=== PATIENT | male | born 1955 | race Caucasian/White ===

== ENCOUNTER 2017-04-25 15:46 | Inpatient (IN) | payer OTHER, MEDICARE ==
[~2017-04-25] VITALS: Ht 177.8 cm; Wt 89.8 kg
[2017-04-25] MEDS ORDERED: LISINOPRIL20 MG PO (19:18)
[2017-04-25] MEDS ORDERED: METOPROLOL TART25 MG PO (19:18)
[2017-04-25] MEDS ORDERED: RISPERIDONE0.5 MG PO (19:18)
[2017-04-25] MEDS ORDERED: SERTRALINE HCL100 MG PO (19:19)
[2017-04-25] MEDS ORDERED: SIMVASTATIN10 MG PO (19:19)
[2017-04-25] MEDS ORDERED: BUPROPION XL300 MG PO (19:19)
[2017-04-25] MEDS ORDERED: LEVOTHYROXINE50 MCG PO (19:19)
[2017-04-25] MEDS ORDERED: ZOLPIDEM TARTRA10 MG PO (19:19)
[2017-04-25] MEDS ORDERED: TROSPIUM CHLORI20 MG PO (19:20)
[2017-04-25] MEDS ORDERED: PILOCARPINE HCL5 MG PO (19:20)
--- NOTE | 2017-04-25 19:30 | NUR ---
PT ARRIVED TO FLOOR VIA STRETCHER WITH FLOAT RN. PT COMPLAINING OF PAIN IN RIGHT SHOULDER/CHEST AREA. PT CURRENTLY ON OXYGENAND SPO2 100% AT 4L NC. PER SHIFT REPORT PER MD LEAVE PT ON OXYGEN. TRANSFERED PT TO BED WITH 4 PERSON SLIDE. PT AT BEDSIDE.
--- NOTE | 2017-04-25 20:00 | NUR ---
GAVE PT PRN PAIN MEDICATION PT PAIN CURRENTLY 05/16. REDRESSED PT IV. IV FLUSES WELL WITH BLOOD RETURN PRESENT. PT HR AND BP SLIGHTLY ELEVATED. PT HAS HX A.FIB AND ARRIVED TO [facility] IN A.FIB. PT REPORTS HE IS ON ELIQUIS AT HOME. MD ANGEL.
--- NOTE | 2017-04-25 20:30 | NUR ---
GAVE PT ANOTHER DOSE PRN PAIN MEDICATIONS PER ORDER. PT PAIN 04/15. WILL CONTINUE TO MONITOR. PT WEARING SLING ON RIGHT ARM. GAVE PT A FOLDED THICKER BLANKET TO SPLINT CHEST TUBE SITE FOR COMFORT. PT ASSESSMENT COMPELTED. PT LUNGS ARE CLEAR THROUGHOUT AND DIMINISHED IN RIGHT LOWER. PT HAS ABRASION ON RIGHT AND LEFT SHOULDER. NO DRAINAGE PRESENT AND OPEN TO AIR.
--- NOTE | 2017-04-25 21:15 | NUR ---
CALL MD TO UPDATE ON PT STATUS. MD AWARE OF PAIN AND WILL CONTINUE TO CURRENT PLAN AT THIS TIME. PT PAIN IS DECREASING WITH EACH DOSE OF PAIN MEDICATIONS. PT BP ELEVATED AND DIASTOLIC RUNNING HIGH. PT HR 100-115 IN A.FIB. PER MD ORDER HOME DOSE METOPROLOL AND LISINOPRIL. WILL CONTINUE TO MONITOR.
--- NOTE | 2017-04-25 22:00 | NUR ---
GAVE PRN PAIN MEDICATION. PT PAIN IS TRENDING DOWN WITH EACH ADDITIONAL DOSE. WILL COTNINUE TO MONITOR. PT CHEST TUBE SITE REMAINS UNCHAGNED. PT CHEST TUBE HAS SANGINOUS DRAINAIGE IN CANISTER. CURRENTLY APROX 40MLS. WILL CONTINUE TO MONITOR THROUGHOTU THE NIGHT.
--- NOTE | 2017-04-25 23:10 | NUR ---
PT DENIED PAIN MEDICATIONS AT THIS TIME. EDUCATED TO CALL IF PT CHANGES HIS MIND. WILL CONTINUE TO MONITOR.
--- NOTE | 2017-04-26 | NUR ---
PT PAIN INCREASING AGAIN. GAVE PRN PAIN MEDICATION. PT RIGHT ARM REMAINS IN SLING AND CHEST TUBE UNCHANGED. WILL CONTINUE TO CLOSELY MONITOR. PT STATES " MY PAIN IS MUCH BETTER THAN WHEN I GOT TO THE ER". PT DENIES ANY OTHER NEEDS AT THIS TIME. WILL CONTINUE TO MONITOR.
--- NOTE | 2017-04-26 01:40 | NUR ---
PT MOANING. ENTERED ROOM AND ASKED PT IF HE IS HAVING PAIN AND PT SAID YES 03/16. GAVE PRN PAIN MEDICATION. CALLED RT TO LET THEM KNOW PT WAS AWAKE AND IS READY FOR BREATHING TREATMENT. WILL CONTINUE TO MONITOR.
--- NOTE | 2017-04-26 02:06 | NUR ---
PATIENT MEDICATED FOR INCREASING PAIN 7/10 TO RIGHT SIDE AND SHOULDER. PATIENT REPOSITIONED AT THIS THIS TIME. OXYGEN WITH HUMIDIFER PLACED.
--- NOTE | 2017-04-26 04:00 | NUR ---
PT CONTINUES TO HAVE INCREASED PAIN. WILL GIVE PRN PAIN MEDICATION NEEDED. PT CHEST TUBE UNCHANGED. NO CREPITUS PRESENT. UNCHANGED DRAINAGE AT SIGHT AND SANGINOUS DRAINAGE IN CHEST TUBE CHAMBER. WILL CONTINUE TO MONITOR.
--- NOTE | 2017-04-26 06:30 | NUR ---
X-RAY COMPLETED. PT TOLERATED WELL. PICTURES TAKEN OF CURRENT BRUISING. PT STATES PAIN THIS AM IS IMPROVING. PT CURRENTLY REPORTS PAIN 4/10. PT ASKED FOR JELLO, BROTH, FRESH WATER. PT TOLERATED CLEAR LIQUIDS LAST NIGHT. WILL CONTINUE TO MONITOR.
--- NOTE | 2017-04-26 06:54 | NUR ---
PT RESTING IN BED AT THIS TIME. PT WAS ABLE TO ROLL IN BED WITH ASSISTANCE AND WAS ABLE TO TOLERATE IT BETTER THEN EARLIER IN THE NIGHT. PT BACK LOOKS UNCHANGED. WILL CONTINUE TO MONTIOR.
--- NOTE | 2017-04-26 07:30 | NUR ---
BEDSIDE REPORT RECIEVED. PATIENT IS RESTING IN BED. NO AIR LEAK NOTED FROM RIGHT SIDE CHEST TUBE TO RIGHT CHEST DRAIN. CHEST TUBE REMAINS TO 20 CM SUCTION. IS INTERACTIVE DURNING REPORT.
--- NOTE | 2017-04-26 08:15 | NUR ---
C/O INCREASE RIGHT SIDE RIB CAGE PAIN. MORPHINE 5MG IV GIVEN.
--- NOTE | 2017-04-26 08:45 | NUR ---
FED PATIENT FEW BITES OF JELLO AND BROTH. IVF PATENT. DENIES NEED TO VOID T THIS TIME.
--- NOTE | 2017-04-26 09:20 | NUR ---
O2 SATS DOWN TO 80. ENC DEEP BREATHING. IS MOUTH BREATHING AT TIMES. OXYMASK AT 3 L APPLIED.
--- NOTE | 2017-04-26 09:50 | NUR ---
VERY SOMULENT. ATTEMPTING TO WAKE PATIENT TO USE I.S. PT IS LETHARGIC. HOB IS ELEVATED. WILL WAKE FOR BRIEF TIME THEN BACK TO SLEEP. ENC PATIENT TO ATTEMPT TO VOID. STATES HE DOES NOT FEEL NEED TO VOID AT THIS TIME. WILL DO BLADDER SCAN. SKIN IS MOIST TO TOUCH.
--- NOTE | 2017-04-26 10:15 | NUR ---
MESSAGE LEFT FOR DR. MARTINES WHO IS OR. WILL UPDATE MD REGARDING PT SOMULANCE, VITL SIGNS, BLADDER SCAN VOLUME.
--- NOTE | 2017-04-26 10:30 | NUR ---
SIDE LINE CO2 MONITOR APPLIED PER RT.
--- NOTE | 2017-04-26 13:15 | NUR ---
VOIDED 25 ML OF DARK HEMALATHA URINE.
--- NOTE | 2017-04-26 14:50 | NUR ---
HERE TO SEE PATIENT.
--- NOTE | 2017-04-26 14:51 | NUR ---
TAKING WATER. REFUSING FUTHER CLEAR LIQ AT THIS TIME.
--- NOTE | 2017-04-26 14:55 | NUR ---
EDUCATION ON SQL APPLICATION DEVELOPER GIVEN.
--- NOTE | 2017-04-26 15:00 | NUR ---
TURNED TO PLACE DRAW SHEET. TOLERATED POOR. CURSING IN PAIN. SHAKING. PATIENT USED HOT METAL MIXER OPERATOR. TORDOL 30 MG IV GIVEN.
--- NOTE | 2017-04-26 16:32 | NUR ---
NEEDS ENCOURAGEMENT TO MOVE. DENIES NAUSEA. ICE REMAINS TO R CLAVICLE, R ARM SLING IN PLACE.
--- NOTE | 2017-04-26 18:00 | NUR ---
VOIDED 125 ML OF DARK CONSENTRATED URINE. BLADDER SCAN DONE. POST VOID BLDDER SCAN WAS 213.
--- NOTE | 2017-04-26 18:13 | NUR ---
EXTREME PAIN WITH MOVEMENT. SAT PATIENT UP IN BED TO TAKE CLEAR LIQUIDS. WAS IN SEVERE PAIN AND HOB LOWERED PER PATIENT R/O. FED PATIENT 20% OF CLEAR LIQ. DENIES NAUSEA.
--- NOTE | 2017-04-26 18:30 | NUR ---
DR. MARTINES UPDATED ON CONDITION AND U/O. FLOMAX ORDERED WELL OTHER ROUTINE MEDICATIONS. HAS OCC HARSH COUGH.
--- NOTE | 2017-04-26 19:27 | NUR ---
REPORT GIVEN TO NEXT SHIFT.
--- NOTE | 2017-04-26 19:46 | NUR ---
IN TO SEE PT. C/O OF PAIN 5/10 LOWEST, INCREASING TO 10/10 WITH MOVEMENT. MOST PAIN LOCATED ON R SIDE. CHEST TUBE IN PLACE WITH SERO-SANGUINEOUS DRAINAGE UNDER DRESSING. APPROXIMATELY 20ML SANGUINEOUS DRAINAGE IN CHEST TUBE COLLECTION CHAMBER. RT IN TO ENCOURAGE I.S. AND ADMINISTER NEB TX. ASSESSMENT COMPLETED.
--- NOTE | 2017-04-27 06:02 | NUR ---
AT 0027 PT ON BEDPAN TO ATTEMPT TO PASS STOOL. UNSUCCESSFUL. PASSED GAS. HR UP TO 140'S. PT ABLE TO PASS LIQUID CREAMY COLORED STOOL AT 0530 - 100ML. PT UP TO BSC AT THAT TIME.
--- NOTE | 2017-04-27 07:04 | NUR ---
PT UP TO BSC TO ATTEMPT TO PASS STOOL. UNSUCCESSFUL. EXTREMELY PAINFUL WITH MOVEMENT, ALSO IMPULSIVE. USING DOPER OPERATOR, REQUESTING MORE PAIN MEDICINE. SETTLES AND CALMS ONCE BACK IN BED.
--- NOTE | 2017-04-27 08:00 | NUR ---
VITALS AND ASSESSMENT DONE. PT UP TO BEDSIDE COMMODE 1 HOUR AGO. COMPLAINING OF 8 OUT OF 10 PAIN. TORADOL GIVEN. DYE MAKER IN LOCKOUT FOR FOUR HOUR LIMIT. CHEST TUBE TO LOW SUCTION AND UNDERWATER SEAL. NO CREPITIS. DRESSING INTACT WITH OLD SEROSANGIUNOUS DRAINAGE.
--- NOTE | 2017-04-27 09:00 | NUR ---
PT STILL IN LOCKOUT AND PAIN HAS INCREASED HE CANNOT HAVE A DOSE OF MORPHINE. CONFERRED WITH DR MARTINES AND 4 HOUR LOCKOUT CHANGED. PT GIVEN DOSE OF MOPHINE. RESPIRATORY THERAPY INTO GIVEN PT HIS TREATMENT.
--- NOTE | 2017-04-27 09:30 | NUR ---
PT HAS RECIEVED ANOTHER DOSE OF MORPHINE 2 MG. MUCH MORE COMFORTABLE AND ABLE TO COUGH AND MOVE. AM MEDICATIONS GIVEN. PT ALSO GIVEN BREAKFAST.
--- NOTE | 2017-04-27 10:30 | NUR ---
PT USING CARBIDER APPROPRIATELY AND PAIN CONTROL BETTER NOW AT A 4 OUT OF 10 INSTEAD OF 8 OUT OF 10. GIVEN BATH AND PT PLANNING TO WALK TO BATHROOM TO HAVE BM. WALKER IN ROOM IF PT NEEDS IT.
--- NOTE | 2017-04-27 11:30 | NUR ---
PT HAS VISITOR AND PUT AMBULATION ON HOLD FOR NOW. HAS BEEN ABLE TO COUGH WELL. NO OTHER CHANGES.
[2017-04-27] MEDS ORDERED: FLUTICASONE PRO16 GM NAS (12:05)
[2017-04-27] MEDS ORDERED: ELIQUIS5 MG PO (12:05)
--- NOTE | 2017-04-27 12:09 | NUR ---
MED REC --PER PATIENT
--- NOTE | 2017-04-27 12:45 | NUR ---
PT ABLE TO GET UP TO BEDSIDE COMMODE. HAD LIQUID STOOL AND VOIDED. PT MOVING WELL. PT ATTEMPTED TO SIT IN CHAIR BUT HAD INCREASED PAIN IN THIS POSITION. PT TO BED WITH HEAD OF BED ELEVATED. ENCOURAGE COUGING. VITALS AND ASSESSMENT DONE.
--- NOTE | 2017-04-27 14:00 | NUR ---
PT HAD LUNCH AND NEBULIZER TREATMENT. GIVEN DILAUDID 4MG PO. ENCOURAGED PT TO ONLY USE MORPHINE DYNAMICS AX TECHNICAL ARCHITECT FOR BREAKTHROUGH PAIN. CONTINUE TO MONTIOR.
--- NOTE | 2017-04-27 17:07 | NUR ---
PT HAS BEEN SLEEPING WELL. AWAKENS TO SOUND. PT ABLE TO COUGH AND CLEAR THICK SPUTUM. PT USED MS ASSISTANT WINEMAKER. ENCOURAGED PT TO ONLY USE IV PAIN MEDICATION FOR BREAKTHROUGH PAIN. PT STATED UNDERSTANDING. PT DROWSY AT TIMES. NOW TALKING WITH FAMILY ON PHONE.
--- NOTE | 2017-04-27 18:45 | NUR ---
DR MARTINES UPDATED ABOUT PT'S PAIN LEVEL. PT TOLERATING DILAUDID WELL BUT IS SLEEPY AND USING RADIO INTELLIGENCE OPERATOR-MS OUT OF HABIT. HAVE INSTRUCTED PT ON GOAL TO SWITCH TO ORAL PAIN MEDICATIONS BUT PT IS NOT ABLE TO UNDERSTAND HE IS DROWSY. MS-RADIO INTELLIGENCE OPERATOR DISCONTINUED. PT NOW EATING SUPPER. EXPLAINED CHANGE TO PT AND HE STATED UNDERSTANDING. STATED PAIN IS 4 OUT OF 10.
--- NOTE | 2017-04-27 19:27 | NUR ---
PT RESTING WITH EYES CLOSED, RESP EVEN AND UNLABORED, HR 92, SPO2 95%.
--- NOTE | 2017-04-27 20:30 | NUR ---
PT SLEEPING, VERY DIFFICULT TO AROUSE FOR ASSESSMENT. DENIES NEEDS, BACK TO SLEEP. CHEST TUBE DRAINING SEROSANG FLUID, IVF INFUSING.
--- NOTE | 2017-04-27 21:15 | NUR ---
PT DIFFICULT TO AROUSE, WHEN HE WAKES UP HE IS CONFUSED, SAYING THINGS LIKE "I THOUGHT I WAS GOING TO HAVE TO GIVE AWAY OUR HIDEOUT". LOPRESSOR GIVEN, PT DENIES PAIN, QUICKLY BACK TO SLEEP.
--- NOTE | 2017-04-27 22:30 | NUR ---
O2 SATURATIONS HAVE BEEN DROPPING, 81% TO 85%, PT MOUTH BREATHING WITH PERIODS OF APNEA/SNORING. OXYMASK PLACED AND TITRATED UP TO 5L WITH SPO2 INCREASING TO 95%.
--- NOTE | 2017-04-27 23:40 | NUR ---
PT AWAKENS SUDDENLY WITH MOANING AND C/O OF RIGHT SIDED RIB PAIN. HR UP TO 120'S, PT CONFUSED, NOT AWARE HE IS IN THE HOSPITAL OR WHY OR WHAT TOWN HE IS IN. PO DILAUDID GIVEN, PT EVENTUALLY ABLE TO RELAX AND GOES BACK TO SLEEP.
--- NOTE | 2017-04-28 01:30 | NUR ---
PT AWAKENS WITH SUDDEN PAIN, CONFUSION. MORPHINE 4MG IV GIVEN.
--- NOTE | 2017-04-28 02:00 | NUR ---
PT CONTINUES TO MOAN IN PAIN. IV TORADOL GIVEN.
--- NOTE | 2017-04-28 03:15 | NUR ---
PT AWAKE IN BED WATCHING TV, STATES HE IS COMFORTABLE. REPORTS FEELING CONFUSED EARLIER AND BELIEVES IT WAS THE DILAUDID.
--- NOTE | 2017-04-28 05:05 | NUR ---
PT CALLS, UP TO BSC TO TRY TO HAVE BM BUT UNABLE, DOES VOID 400ML DARK URINE. MOVES WELL WITH MINIMAL PAIN. BACK TO BED TO WATCH TV.
--- NOTE | 2017-04-28 06:26 | NUR ---
UP TO BSC TO TRY TO HAVE BM AGAIN BUT UNABLE TO. BACK TO BED. CONTINUES TO MOVE WELL WITH LESS PAIN. LAB IN TO DRAW.
--- NOTE | 2017-04-28 07:30 | NUR ---
PT TO BED. CHEST TUBE INTACT TO RT SIDE OF CHEST. DRESSING INTACT WITH OLD SEROUS DRAINAGE TO DRESSING. NO CREPITIS NOTED. OLD BRUISING TO RT UPPER SHOULDER. CHEST TUBE TO WATER SEAL NO AIR LEAK NOTED. PT TOLERATING ROOM AIR AT PRESENT WITH SATS AT 94%. PCXR DONE AND NOW PT HURTING. DILAUDID 4 MG PO AND TORADOL 30 MG IV GIVEN. PT ALSO GIVEN LOPRESSOR 12.5 MG PO GIVEN HEART RATE IS 110'S AND BLOOD PRESSURE IS 155/95. PT RATING PAIN AT 7 OUT OF 10. WILL MONITOR.
--- NOTE | 2017-04-28 08:30 | NUR ---
PT ALSO GIVEN SOME ZOFRAN 4 MG IV. PAIN IS DECREASING TO 5 OUT OF 10. PT DOES REPORT THAT HE SEES COLORS AND PATTERNS ON THE BANG. HE IS ALERT AND ORIENTED. ALSO GIVEN REST OF AM MEDICATIONS AND BATH. ORAL CARE DONE. BREAKFAST ORDERED. PT ABLE TO COUGH AND DEEP BREATH. MOVING BETTER.
--- NOTE | 2017-04-28 10:34 | NUR ---
PT AMBULATED FROM ROOM 127 TO ROOM 129 AND BACK HEART RATE INCREASED TO THE 130'S BUT WHEN WOULD STOP AND REST HIS HEART RATE WOULD DECREASE TO THE 100'S. PT BACK TO HIS ROOM AND UP IN THE CHAIR AT THIS TIME.
--- NOTE | 2017-04-28 10:52 | NUR ---
PT BACK TO BED AT THIS TIME, MOVES WILL WITH MINUAL ASSISTANCE NEEDED OTHER THAN TO [place]ANG[place]. LINES CHANGED AND SIDE RAILS UP X2 AND CALL LIGHT WITHIN REACH.
--- NOTE | 2017-04-28 11:00 | NUR ---
DR MARTINES BY TO SEE PT. CHEST TUBE DISCONTINUED AND OCCLUSIVE DRESSING IN PLACE. NO DRAINAGE NOTED. PT UP AND AMBULATED IN HALLS. TOLERATED ACTIVITY FAIR. NOW TO BED AND STATED PAIN IS MUCH BETTER WITH CHEST TUBE OUT. VITALS AND ASSESSMENT DONE. CONTINUES TO TOLERATE ROOM AIR.
--- NOTE | 2017-04-28 14:00 | NUR ---
PT CONTINUES TO DO WELL WITH ACTIVITY. GIVEN DILAUDID 4 MG PO AFTER A COUGHING EPISODE. CONTINUE TO ENCOURAGE FLUIDS. DRESSING TO SIDE OF CHEST STILL INTACT. PT STATED HE HAS LESS PAIN AFTER CHEST TUBE GONE.
--- NOTE | 2017-04-28 16:50 | NUR ---
PT GIVEN MORPHINE 2 MG IV FOR PAIN AND NOW UP IN HALLS WALKING. TOLERATED BETTER AND WALKED FARTHER. CONTINUES TO TOLERATE ROOM AIR.
--- NOTE | 2017-04-28 18:31 | NUR ---
PT GIVEN DILAUDID 4 MG PO FOR PAIN. CONTINUES TO TOLERATE ROOM AND PAIN WELL.
--- NOTE | 2017-04-28 20:08 | NUR ---
PT STATES HE IS JUST SORE. BP 150\113. MESSAGE LEFT FOR DR MARTINES ON CELL AND HOME PHONE. PT USUALLY TAKES LISINOPRIL AND IT HAS NOT BEEN ORDERED. 12.5MG METOPROLOL PO GIVEN EARLY.
--- NOTE | 2017-04-28 22:06 | NUR ---
GIVEN 8MG DIALUDID PO FOR PAIN OF 6/10. READY FOR SLEEP.
--- NOTE | 2017-04-28 23:24 | NUR ---
PT RESTFUL. GIVEN 30MG TORRADOL IV FOR PAIN CONTROL. BP 158/117. PT WAS GIVEN 20MG LISINOPRIL AT 2115. WILL MONITOR.
--- NOTE | 2017-04-29 01:15 | NUR ---
AWAKE TO VOID, STATES IS SLEEPING OFF AND ON. COMMENTS THAT ROOM IS REALLY MESSY, POINTED OUT TO PT THAT THERE WAS LITTLE CLUTTER. PT THEN AGREED. BP 158/101, SL TREND DOWNWARD.
--- NOTE | 2017-04-29 02:15 | NUR ---
SAT AT BEDSIDE TO VOID. NO CHANGE.
--- NOTE | 2017-04-29 04:20 | NUR ---
PT AWAKE TO VOID. VS DONE. DISCUSSED THAT IS STILL HYPERTENSIVE AND MAY NEED TO HAVE MEDICATIONS ADJUSTED BY PCP. PT FELL BACK TO SLEEP RIGHT AFTER THIS SO WILL PROBABLY NEED REINFORCEMENT. RATES PAIN 2/10.
--- NOTE | 2017-04-29 05:57 | NUR ---
DR JACKSON CALLED RE BP. ORDER RECIEVED. URINE OUTPUT HAS IMPROVED.
--- NOTE | 2017-04-29 06:21 | NUR ---
MEDS GIVEN. PT DOZING OFF AND OFF, DECLINES OFFER OF PAIN MED.
--- NOTE | 2017-04-29 06:54 | NUR ---
PT REQUESTING PAIN MED FOR R SHOULDER BLADE PAIN. GIVEN 30MG TORRADOL IV AND 4MG DILAUDID PO.
--- NOTE | 2017-04-29 07:08 | NUR ---
UP TO CHAIR. INDIRA WELL
--- NOTE | 2017-04-29 07:15 | NUR ---
IS UP IN CHAIR. BEDSIDE REPORT RECIEVED.
--- NOTE | 2017-04-29 08:00 | NUR ---
BACK TO BED. C/O NAUSEA. ZOFRAN GIVEN. BP-171/108. MESSAGE LEFT WITH DRY PLASTERER FOR DR. MARTINES.
--- NOTE | 2017-04-29 10:00 | NUR ---
DR. MARTINES UPDATED ON CONDITION AND BP. ORDERS RECIEVED TO GIVE NITROPASTE 2 INCHES.
--- NOTE | 2017-04-29 10:58 | NUR ---
DILAUDID 4 MG IV GIVEN FOR PAIN. PATIENT ASKING ABOUT DISCHARGE, REFUSING SHOWER AT THIS TIME. PATIENT AT BEDSIDE.
--- NOTE | 2017-04-29 13:43 | NUR ---
DR. SANDOVAL IN ROOM TO SEE PATIENT AT THIS TIME. HEART RATE IN THE 90s. CONTINUE TO MONITOR.
--- NOTE | 2017-04-29 14:45 | NUR ---
DR. MARTINES HERE TO SEE PATIENT, ORDERS RECIVED TO [place].
[2017-04-29] MEDS ORDERED: MIRALAX17 GM PO (14:58)
[2017-04-29] MEDS ORDERED: HYDROMORPHONE HC4 MG PO (14:59)
--- NOTE | 2017-04-29 15:00 | NUR ---
IV DC'D. MONITOR DC'D. TO BE DISCHARGED TODAY.
--- NOTE | 2017-04-29 15:45 | NUR ---
DISCHARGE INSTRUCTIONS GIVEN TO PATIENT AND PATIENT . INDICATES UNDERSTANDING.
--- NOTE | 2017-04-29 16:02 | NUR ---
DISCHARGED VIA W/C ACCOMP BY AND CIGAR TOBACCO REHANDLER 2.
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
== END 2017-04-29 16:00 | disposition home or self-care (01) | DRG 199 ==
LOC: ED 15:46 → CCU 18:36
PROVIDERS: ADMIT Surgery
PROC: 0W9930Z Drainage of Right Pleural Cavity with Drainage Device, Percutaneous Approach (ICD-10-PCS; principal; 2017-04-25)
DX: J93.9 Pneumothorax, unspecified (principal); S22.5XXA Flail chest, initial encounter for closed fracture; I48.2 Chronic atrial fibrillation; Z79.01 Long term (current) use of anticoagulants; B19.20 Unspecified viral hepatitis C without hepatic coma; V89.2XXA Person injured in unspecified motor-vehicle accident, traffic, initial encounter; Y92.410 Unspecified street and highway as the place of occurrence of the external cause; J44.9 Chronic obstructive pulmonary disease, unspecified; S42.031A Displaced fracture of lateral end of right clavicle, initial encounter for closed fracture; I10 Essential (primary) hypertension; E03.9 Hypothyroidism, unspecified; E78.5 Hyperlipidemia, unspecified; F51.04 Psychophysiologic insomnia
CPT/HCPCS: 36415; 51798; 70450; 71010; 71260; 72125; 72170; 73030; 74177; 80048; 80053; 82150; 82550; 83735; 85025; 85610; 85730; 86850; 86900; 86901; 94640; 96374; 96375; 99285; G0480; J1170; J1885; J2250; J2270; J2405; J3010; J7120; Q9967